=== PATIENT | female | born 1975 | race Caucasian/White ===

== ENCOUNTER 2016-03-11 | Outpatient (CLI) | payer MEDICAID | END 2016-03-11 15:37 | disposition critical access hospital (66) | CPT/HCPCS: A0425; A0427 ==

== ENCOUNTER 2016-03-11 16:07 | Emergency (ER) | payer MEDICAID ==
[2016-03-11] MEDS ORDERED: SODIUM CHLORIDE 0.9% 1,000 ML IV ONE (16:16)
[2016-03-11] MEDS ORDERED: ONDANSETRON 4 MG/2 ML VIAL IVP STA (16:16)
[2016-03-11] MEDS ORDERED: ONDANSETRON 4 MG/2 ML VIAL ONE (16:17)
== END 2016-03-11 18:11 | disposition home or self-care (01) ==
DX: J11.1 Influenza due to unidentified influenza virus with other respiratory manifestations (principal); Z87.891 Personal history of nicotine dependence

== ENCOUNTER 2016-07-04 10:35 | Emergency (ER) | payer MEDICAID ==
[2016-07-04] MEDS ORDERED: CEPHALEXIN 250 MG CAPSULE PO STA (11:11)
[2016-07-04] MEDS ORDERED: HYDROcod/ACETAM 5/325 MG TABLET PO STA (11:11)
[2016-07-04] MEDS ORDERED: DEXAMETHASONE 10 MG/ML VIAL PO STA (11:11)
[2016-07-04] MEDS ORDERED: HYDROcod/ACETAM 5/325 MG TABLET ONE (11:23)
[2016-07-04] MEDS ORDERED: DEXAMETHASONE 10 MG/ML VIAL ONE (11:23)
[2016-07-04] MEDS ORDERED: CEPHALEXIN 250 MG CAPSULE PO ONE (11:23)
== END 2016-07-04 11:30 | disposition home or self-care (01) ==
DX: K04.7 Periapical abscess without sinus (principal); K08.89 Other specified disorders of teeth and supporting structures; Z87.442 Personal history of urinary calculi; Q63.1 Lobulated, fused and horseshoe kidney; Z87.891 Personal history of nicotine dependence
CPT/HCPCS: 99283; A9270

== ENCOUNTER 2016-09-24 06:56 | Emergency (ER) | payer MEDICAID ==
--- NOTE | 2016-09-24 08:25 | ED Physician Documentation ---
PD HPI TRUNK INJURY - Stated complaint Stated Complaint: RIB PX - Chief complaint Chief Complaint: General - History obtained from History obtained from: Patient - History of Present Illness Location: Left chest Type of injury: Fall Timing - onset: How many days ago (10) Timing - details: Still present Quality: Pain Worsened by: Moving, Palpating, Other (Respiratory inspiration or cough) Associated symtptoms: No: Weakness, Numbness Where injury occured: Other (Mother's home.) Similar symptoms before: Diagnosis (Past history of rib fractures caused by aggressive CPR.) - Additional information Additional information: The patient is a 41-year-old female who presents with left chest wall pain that started 10 days ago after she fell, impacting her left chest on shrubs. She presents now because the pain has persisted over the past week and a half. It is worse with deep inspiration or with cough. She denies fever, abdominal pain , nausea or vomiting. She reports history of previous rib fractures bilaterally caused by aggressive CPR years ago. In addition the patient was on an airplane flight 3 days ago. Her symptoms were present before the airplane flight. Review of Systems Constitutional: denies: Fever Nose: denies: Congestion Throat: denies: Sore throat Cardiac: reports: Chest pain / pressure. denies: Palpitations Respiratory: denies: Dyspnea, Cough GI: denies: Abdominal Pain, Nausea, Vomiting : denies: Dysuria Skin: denies: Rash Musculoskeletal: denies: Back pain Neurologic: denies: Focal weakness, Numbness, Headache PD PAST MEDICAL HISTORY - Past Medical History Past Medical History: Yes Cardiovascular: None Respiratory: None Neuro: None Endocrine/Autoimmune: None GI: None ENLISTED ADVISOR: None : Kidney stones HEENT: None Psych: None Musculoskeletal: Chronic back pain Derm: None - Past Surgical History Past Surgical History: Yes General: Cholecystectomy, Appendectomy, Other /ENLISTED ADVISOR: Tubal ligation HEENT: Tonsil/Adenoidectomy - Present Medications Home Medications: Ambulatory Orders Medication Instructions Recorded Confirmed Colestipol HCl 1 gm ORAL DAILY 01/10/14 09/24/16 HYDROcod/ACETAM 5/325 [Vicodin 1 - 2 ea PO Q6H PRN #20 tablet 09/24/16 5/325] - Allergies Allergies/Adverse Reactions: Allergies Allergy/AdvReac Type Severity Reaction Status Date / Time iodine Allergy Severe Respiratory Verified 09/24/16 07:18 shellfish derived Allergy Respiratory Verified 09/24/16 07:18 codeine AdvReac Nausea Verified 09/24/16 07:18 - Social History Does the pt smoke?: No Smoking Status: Former smoker Does the pt drink ETOH?: No Does the pt have substance abuse?: No - Immunizations Immunizations are current?: Yes - POLST Patient has POLST: No PD ED PE NORMAL - Vitals Vital signs reviewed: Yes (Normal) - General General: Alert and oriented X 3, Well developed/nourished - HEENT HEENT: Atraumatic, EOMI, Pharynx benign - Neck Neck: Supple, no meningeal sign, No bony TTP, No adenopathy, No JVD - Cardiac Cardiac: RRR, No murmur, Other (Left midaxillary chest wall tenderness, in the lower left chest. No bony step-off palpated. No ecchymosis or abrasions.) - Respiratory Respiratory: No respiratory distress, Clear bilaterally - Abdomen Abdomen: Soft, Non tender, No organomegaly - Back Back: No CVA TTP, No spinal TTP - Derm Derm: No rash - Extremities Extremities: No edema, No calf tenderness / cord - Neuro Neuro: Alert and oriented X 3, No motor deficit, No sensory deficit, Normal speech Results - Vitals Vitals: Vital Signs - 24 hr 09/24/16 07:15 Temperature 36.8 C Heart Rate 58 L Respiratory 16 Rate Blood Pressure 99/66 O2 Saturation 100 Oxygen O2 Source Room air - Rads (name of study) left ribs with PA chest Radiology: Prelim report reviewed, EMP read contemporaneously, See rad report ( No active cardiopulmonary disease. Fracture seen at the anterior left second through sixth ribs, some of these may be subacute. No pneumothorax.) PD MEDICAL DECISION MAKING - ED course Complexity details: reviewed old records, reviewed results, re-evaluated patient , considered differential, d/w patient, d/w family ED course: The patient's presentation is most consistent with contusion to the left chest wall, with associated rib pain. She has previous history of multiple rib fractures, which are seen on chest x-ray today, but no acute fractures are detected. There is no evidence of pneumothorax or pulmonary contusion. I discussed with the patient and her the results of the x-ray, symptomatic treatment and outpatient follow-up, as well as potentially worrisome signs or symptoms that should prompt reevaluation in the emergency department. Departure - Departure Disposition: 01 Home, Self Care Clinical Impression: Rib pain on left side Condition: Stable Instructions: ED Contusion Chest Wall Follow-Up: [facility] [Provider Group] Prescriptions: HYDROcod/ACETAM 5/325 [Vicodin 5/325] 1 - 2 ea PO Q6H PRN #20 tablet PRN Reason: Pain Comments: Continue using ibuprofen, up to 600 mg 3 times daily for its anti-inflammatory effect. You can use Vicodin as prescribed if needed for pain. Follow-up with your primary physician within 1-2 weeks. Call to schedule an appointment. Return to the emergency department if you develop increasing difficulty breathing, or otherwise worsening symptoms.
--- NOTE | 2016-09-24 09:27 | XRAY Preliminary Report ---
Exam: XR Ribs w/PA Chest LT IMPRESSION: 1. No active cardiopulmonary disease. 2. Fracture seen at the anterior left second through sixth ribs. Some of these may be subacute. 3. No pneumothorax. [facility] SITE ID: [id number]
--- NOTE | 2016-09-24 09:42 | XRAY Report ---
EXAM: LEFT RIB RADIOGRAPHY EXAM DATE: 09/24/2016 08:58 AM. CLINICAL HISTORY: Left chest wall injury. COMPARISON: None. TECHNIQUE: 1 view of the chest and 2 views of the ribs. FINDINGS: Bones: Irregularity and old fractures seen at the second, third, fourth, and sixth anterior left ribs . There is a cortical step-off at the fifth anterior left rib. Lungs: No focal opacities. No pneumothorax. No pleural effusions. Mediastinum: Heart and mediastinal contours are unremarkable. Other: None. IMPRESSION: 1. No active cardiopulmonary disease. 2. Fractures seen at the anterior left second through sixth ribs. Some of these may be subacute. 3. No pneumothorax. [facility] Referring Provider Line: [phone] SITE ID: [id number]
[2016-09-24 09:59] VITALS: BP 108/68
== END 2016-09-24 09:59 | disposition home or self-care (01) ==
LOC: ED 06:56
DX: R07.81 Pleurodynia (principal); Z91.81 History of falling; Z87.891 Personal history of nicotine dependence
CPT/HCPCS: 99283

== ENCOUNTER 2017-01-22 16:15 | Emergency (ER) | payer MEDICAID ==
--- NOTE | 2017-01-22 17:29 | ED Physician Documentation ---
PD HPI NVD - Stated complaint Stated Complaint: VOMITING - Chief complaint Chief Complaint: General - History obtained from History obtained from: Patient - History of Present Illness Timing - onset: Yesterday Timing - duration: Days (02/23) Timing - details: Abrupt onset, Still present Associated symptoms: Abdominal pain (mid abd cramping), Loss of appetite. No: Fever, Chest pain, Hematemesis, Near syncope / syncope, Weight loss Contributing factors: No: Sick contact, Bad food, Travel, Recent antibiotics Worsened by: Eating Similar symptoms before: Has not had sx before Recently seen: Not recently seen Review of Systems Constitutional: reports: Chills, Myalgias. denies: Fever Nose: denies: Rhinorrhea / runny nose, Congestion Throat: denies: Sore throat Cardiac: denies: Chest pain / pressure Respiratory: denies: Cough GI: reports: Abdominal Pain, Nausea, Vomiting, Diarrhea : denies: Dysuria, Frequency Neurologic: reports: Generalized weakness, Headache. 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 : Kidney stones HEENT: None Psych: None Musculoskeletal: Chronic back pain Derm: None - Past Surgical History Past Surgical History: Yes General: Cholecystectomy, Appendectomy, Other /STARCH MANGLE TENDER: Tubal ligation HEENT: Tonsil/Adenoidectomy - Present Medications Home Medications: Ambulatory Orders Medication Instructions Recorded Confirmed Colestipol HCl 1 gm ORAL DAILY 01/10/14 09/24/16 HYDROcod/ACETAM 5/325 [Vicodin 1 - 2 ea PO Q6H PRN #20 tablet 09/24/16 5/325] Ondansetron Odt [Zofran] 4 mg TL Q6H PRN #15 tablet 01/22/17 - Allergies Allergies/Adverse Reactions: Allergies Allergy/AdvReac Type Severity Reaction Status Date / Time iodine Allergy Severe Respiratory Verified 01/22/17 16:29 bee venom protein (honey bee) Allergy Anaphylaxis Verified 01/22/17 16:30 shellfish derived Allergy Respiratory Verified 01/22/17 16:29 codeine AdvReac Nausea Verified 01/22/17 16:29 - Social History Does the pt smoke?: No Smoking Status: Never smoker Does the pt drink ETOH?: No Does the pt have substance abuse?: No - Immunizations Immunizations are current?: Yes - POLST Patient has POLST: No PD ED PE NORMAL - Vitals Vital signs reviewed: Yes - General General: Alert and oriented X 3, Well developed/nourished - HEENT HEENT: Atraumatic, Ears normal. No: Moist mucous membranes - Neck Neck: Supple, no meningeal sign, No adenopathy - Cardiac Cardiac: RRR, No murmur - Respiratory Respiratory: Clear bilaterally - Abdomen Abdomen: Normal bowel sounds, Soft, Non distended, No organomegaly, Other ( minimal mid abd tenderness without guarding. ) - Female Female : Deferred - Rectal Rectal: Deferred - Back Back: No CVA TTP - Derm Derm: Normal color, Warm and dry - Extremities Extremities: No tenderness to palpate, Normal ROM s pain - Neuro Neuro: Alert and oriented X 3, No motor deficit, Normal speech Results - Vitals Vitals: Oxygen O2 Source Room air - Labs Labs: Laboratory Tests 01/22/17 01/22/17 01/22/17 17:26 17:26 17:45 WBC 5.9 RBC 4.35 Hgb 12.6 Hct 37.0 MCV 85.0 MCH 28.8 MCHC 33.9 RDW 12.8 Plt Count 300 MPV 6.8 L Neut # 2.6 Lymph # 2.7 [place] # 0.5 Eos # 0.1 Baso # 0.0 Absolute Nucleated RBC 0.00 Nucleated RBC % 0.1 Sodium 136 Potassium 3.5 Chloride 101 Carbon Dioxide 28 Anion Gap 7.0 BUN 15 Creatinine 0.6 Estimated GFR (MDRD) 111 Glucose 106 H Calcium 8.6 Total Bilirubin 0.6 AST 65 H ALT 175 H Alkaline Phosphatase 49 Total Protein 7.0 Albumin 4.1 Globulin 2.9 Albumin/Globulin Ratio 1.4 Lipase 23 Urine Color YELLOW Urine Clarity CLOUDY Urine pH 5.5 Ur Specific [place] >=1.030 H Urine Protein NEGATIVE Urine Glucose (UA) NEGATIVE Urine Ketones NEGATIVE Urine Occult Blood SMALL H Urine Nitrite NEGATIVE Urine Bilirubin NEGATIVE Urine Urobilinogen 0.2 (NORMAL) Ur Leukocyte Esterase NEGATIVE Urine RBC 0-5 Urine WBC 0-3 Ur Squamous Epith Cells FEW Squamous Urine Bacteria None Seen Ur Microscopic Review INDICATED Urine Culture Comments NOT INDICATED PD MEDICAL DECISION MAKING - ED course Complexity details: reviewed results, re-evaluated patient (feeling better with fluids and meds. ), considered differential, d/w patient Departure - Departure Disposition: 01 Home, Self Care Clinical Impression: Nausea & vomiting Qualifiers: Vomiting type: unspecified Vomiting Intractability: non-intractable Qualified Code(s): R11.2 - Nausea with vomiting, unspecified Condition: Stable Record reviewed to determine appropriate education?: Yes Instructions: ED Nausea Vomiting Follow-Up: Armida Simon MD [Primary Care Provider] - Prescriptions: Ondansetron Odt [Zofran] 4 mg TL Q6H PRN #15 tablet PRN Reason: Nausea / Vomiting Comments: Ondansetron if needed for nausea. Small frequent fluids. [place] food initially such as pasta and rice and progress as able. Off work for 1-2 days due to the acute illness. Recheck if not improved over the next couple of days. Forms: Activity restrictions Discharge Date/Time: 01/22/17 17:56
[2017-01-22 17:45] LABS: ALBUMIN/GLOBULIN RATIO 1.4 (1.0-2.2); BILIRUBIN,TOTAL 0.6 mg/dL (0.2-1.0); CALCIUM 8.6 mg/dL (8.5-10.3); CREATININE 0.6 mg/dL (0.4-1.0); POTASSIUM 3.5 mmol/L (3.5-5.0)
[2017-01-22] MEDS ORDERED: ONDANSETRON ODT 4 MG TABLET TL STA (17:46)
[2017-01-22 17:54] LABS: BILIRUBIN,URINE NEGATIVE (NEGATIVE); PH,URINE 5.5 PH (5.0-7.5)
[2017-01-22 17:54] LABS: BASOPHILS % (AUTO) 0.6 %; EOSINOPHILS # (AUTO) 0.1 10^3/uL (0.0-0.7); EOSINOPHILS % (AUTO) 1.3 %; HGB - HEMOGLOBIN 12.6 g/dL (12.0-16.0); LYMPHOCYTES # (AUTO) 2.7 10^3/uL (1.5-3.5); LYMPHOCYTES % (AUTO) 45.9 %; MEAN CORPUSCULAR HEMOGLOBIN 28.8 pg (27.0-31.0); MEAN CORPUSCULAR HGB CONC 33.9 g/dL (32.0-36.0); MEAN PLATELET VOLUME 6.8 fL (7.9-10.8); MONOCYTES # (AUTO) 0.5 10^3/uL (0.0-1.0); MONOCYTES % (AUTO) 7.9 %; NEUTROPHILS # (AUTO) 2.6 10^3/uL (1.5-6.6); NEUTROPHILS % (AUTO) 44.3 %; NUCLEATED RED BLOOD CELLS AUTO 0.1 /100WBC; RED BLOOD COUNT 4.35 10^6/uL (4.20-5.40); RED CELL DISTRIBUTION WIDTH 12.8 % (12.0-15.0); UNCORRECTED WHITE BLOOD COUNT 5.9 x10^3/uL; WHITE BLOOD COUNT 5.9 x10^3/uL (4.8-10.8)
[2017-01-22 17:55] LABS: UA w/ MICROSCOPIC CHARGE YES
[2017-01-22 17:56] VITALS: BP 116/68
[2017-01-22 18:44] LABS: UR CULTURE IF IND NOT INDICATED; WBC,URINE 0-3 /HPF (0-5)
== END 2017-01-22 17:56 | disposition home or self-care (01) ==
LOC: ED 16:15
DX: R11.2 Nausea with vomiting, unspecified (principal)
CPT/HCPCS: 36415; 80053; 81001; 81003; 83690; 85025; 87086; 99283

== ENCOUNTER 2017-03-02 11:41 | Emergency (ER) | payer MEDICAID ==
[2017-03-02] MEDS ORDERED: PROPARACAINE 0.5% OPHTH DROPS 15 ML EACHEYE STA (13:07)
[2017-03-02 13:17] VITALS: BP 124/96
--- NOTE | 2017-03-02 13:22 | ED Physician Documentation ---
PD HPI OPHTHO - Stated complaint Stated Complaint: R EYE F/O - Chief complaint Chief Complaint: Heent - History obtained from History obtained from: Patient, Family - History of Present Illness Timing - onset: How many days ago (2) Timing - duration: Days (2) Timing - details: Gradual onset Pain level max: 5 Pain level now: 2 Location: Right Quality / character: Aching Associated symptoms: Redness, Tearing, Discharge (states purulent discharge yesterday.) Contributing factors: Wears contacts (contact lens stuck to her eye.) Similar symptoms before: Has not had sx before Recently seen: Not recently seen Review of Systems Constitutional: denies: Fever, Chills : denies: Now EGA PD PAST MEDICAL HISTORY - Past Medical History Cardiovascular: None Respiratory: None Neuro: None Endocrine/Autoimmune: None GI: None 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 : Kidney stones HEENT: None Psych: None Musculoskeletal: Chronic back pain Derm: None - Past Surgical History Past Surgical History: Yes General: Cholecystectomy, Appendectomy, Other /MEDIA SENIOR RECRUITER: Tubal ligation HEENT: Tonsil/Adenoidectomy - Present Medications Home Medications: Ambulatory Orders Medication Instructions Recorded Confirmed Colestipol HCl 1 gm ORAL DAILY 01/10/14 03/02/17 Ofloxacin 0.3% Ophth Drops 2 drops OPTH Q4H 10 Days #1 btl 03/02/17 [Ocuflox 0.3% Ophth Drops] - Allergies Allergies/Adverse Reactions: Allergies Allergy/AdvReac Type Severity Reaction Status Date / Time iodine Allergy Severe Respiratory Verified 03/02/17 11:49 bee venom protein (honey bee) Allergy Anaphylaxis Verified 03/02/17 11:49 shellfish derived Allergy Respiratory Verified 03/02/17 11:49 codeine AdvReac Nausea Verified 03/02/17 11:49 - Social History Does the pt smoke?: No Smoking Status: Never smoker Does the pt drink ETOH?: No Does the pt have substance abuse?: No - Immunizations Immunizations are current?: Yes - POLST Patient has POLST: No PD ED PE NORMAL - Vitals Vital signs reviewed: Yes - General General: Alert and oriented X 3, No acute distress - HEENT HEENT: Moist mucous membranes - Neck Neck: Supple, no meningeal sign - Derm Derm: Warm and dry - Neuro Neuro: Alert and oriented X 3 PD ED PE EXPANDED - HEENT HEENT Visual: 1 - abrasion (small corneal abrasion, + fluoroscein uptake. otherwsie normal exam. no tearing. no drainage. no FB. eyelids everted) Results - Vitals Vitals: Vital Signs - 24 hr 03/02/17 03/02/17 11:46 13:16 Temperature 37.2 C 36.6 C Heart Rate 100 77 Respiratory 17 18 Rate Blood Pressure 132/56 H 124/96 H O2 Saturation 99 99 Oxygen O2 Source Room air PD MEDICAL DECISION MAKING - ED course Complexity details: considered differential, d/w patient ED course: Patient with a right eye corneal abrasion. Will place on ofloxacin as this was a contact lens related injury. We will have her follow-up with her eye doctor for further care. She is not to use contacts until released by her doctor. Patient counseled regarding signs and symptoms for which I believe and urgent re -evaluation would be necessary. Patient with good understanding of and agreement to plan and is comfortable going home at this time This document was made in part using voice recognition software. While efforts are made to proofread this document, sound alike and grammatical errors may occur. No visible foreign body on exam Departure - Departure Disposition: 01 Home, Self Care Clinical Impression: Corneal abrasion due to contact lens Qualifiers: Laterality: right Qualified Code(s): H18.821 - Corneal disorder due to contact lens, right eye Condition: Good Instructions: ED Eye Injury Corneal Abrasion Follow-Up: Armida Simon MD [Primary Care Provider] - Within 1 week Prescriptions: Ofloxacin 0.3% Ophth Drops [Ocuflox 0.3% Ophth Drops] 2 drops OPTH Q4H 10 Days # 1 btl Comments: do not wear your contacts until cleared by your eye doctor. Return if you worsen.
== END 2017-03-02 13:40 | disposition home or self-care (01) ==
LOC: ED 11:41
DX: H18.821 Corneal disorder due to contact lens, right eye (principal)
CPT/HCPCS: 99283; J3490

== ENCOUNTER 2017-03-11 07:54 | Outpatient (CLI) | payer MEDICAID | END 2017-03-11 07:55 | disposition critical access hospital (66) | LOC: EMS 07:54 | PROVIDERS: ATTEND Surgery | DX: M54.9 Dorsalgia, unspecified (principal); R11.10 Vomiting, unspecified; R42 Dizziness and giddiness | CPT/HCPCS: A0425; A0429 ==

== ENCOUNTER 2017-03-11 08:16 | Emergency (ER) | payer MEDICAID ==
[2017-03-11] MEDS ORDERED: KETOROLAC 60 MG/2 ML VIAL IVP STA (08:38)
[2017-03-11] MEDS ORDERED: SODIUM CHLORIDE 0.9% 1,000 ML IV ONE (08:38)
--- NOTE | 2017-03-11 08:45 | ED Physician Documentation ---
PD HPI ABD PAIN - Stated complaint Stated Complaint: KIDNEY PX - Chief complaint Chief Complaint: Abd Pain - History obtained from History obtained from: Patient, Family - History of Present Illness Timing - onset: Enter time (399), Today Timing - duration: Hours Timing - details: Abrupt onset, Still present Quality: Sharp, Pain Location: LUQ Radiation: Left flank Improved by: Other (nothing) Worsened by: Other (nothing) Associated symptoms: Nausea, Vomiting Similar symptoms before: Diagnosis (renal colic) Recently seen: Not recently seen - Additional information Additional information: 41-year-old female with a history of multiple prior kidney stones Review of Systems Constitutional: denies: Fever, Chills, Myalgias Eyes: denies: Decreased vision Ears: denies: Ear pain Nose: denies: Congestion Throat: denies: Sore throat Cardiac: denies: Chest pain / pressure Respiratory: denies: Dyspnea, Cough GI: reports: Abdominal Pain, Nausea. denies: Constipation, Diarrhea : denies: Dysuria, Frequency Skin: denies: Rash Musculoskeletal: reports: Back pain. denies: Neck pain PD PAST MEDICAL HISTORY - Past Medical History Past Medical History: Yes Cardiovascular: None Respiratory: None Neuro: None Endocrine/Autoimmune: None GI: None MANAGER QUALITY: None : Kidney stones HEENT: None Psych: None Musculoskeletal: Chronic back pain Derm: None - Past Surgical History Past Surgical History: Yes General: Cholecystectomy, Appendectomy, Other /MANAGER QUALITY: Tubal ligation HEENT: Tonsil/Adenoidectomy - Present Medications Home Medications: Ambulatory Orders Medication Instructions Recorded Confirmed Colestipol HCl 1 gm ORAL DAILY 01/10/14 03/11/17 Ofloxacin 0.3% Ophth Drops 2 drops OPTH Q4H 10 Days #1 btl 03/02/17 03/11/17 [Ocuflox 0.3% Ophth Drops] - Allergies Allergies/Adverse Reactions: Allergies Allergy/AdvReac Type Severity Reaction Status Date / Time iodine Allergy Severe Respiratory Verified 03/11/17 08:21 bee venom protein (honey bee) Allergy Anaphylaxis Verified 03/11/17 08:21 shellfish derived Allergy Respiratory Verified 03/11/17 08:21 codeine AdvReac Nausea Verified 03/11/17 08:21 - Social History Does the pt smoke?: No Smoking Status: Never smoker Does the pt drink ETOH?: No Does the pt have substance abuse?: No - Immunizations Immunizations are current?: Yes - POLST Patient has POLST: No PD ED PE NORMAL - Vitals Vital signs reviewed: Yes (normal ) - General General: Alert and oriented X 3, Well developed/nourished, Other (41 y/o female is moaning in pain ) - HEENT HEENT: Atraumatic, PERRL - Neck Neck: Supple, no meningeal sign - Cardiac Cardiac: RRR, No murmur - Respiratory Respiratory: No respiratory distress, Clear bilaterally - Abdomen Abdomen: Normal bowel sounds, Soft, Non tender, Non distended, No organomegaly - Back Back: No CVA TTP, No spinal TTP - Derm Derm: Normal color, Warm and dry, No rash - Extremities Extremities: No deformity, No edema - Neuro Neuro: No motor deficit, No sensory deficit Eye Opening: Spontaneous Motor: Obeys Commands Verbal: Oriented GCS Score: 15 - Psych Psych: Normal mood, Normal affect Results - Vitals Vitals: Vital Signs - 24 hr 03/11/17 03/11/17 08:19 10:23 Temperature 36.7 C Heart Rate 65 93 Respiratory 17 18 Rate Blood Pressure 124/80 115/73 O2 Saturation 100 99 Oxygen O2 Source Room air - Labs Labs: Laboratory Tests 03/11/17 10:34 Urine Color YELLOW Urine Clarity SL. CLOUDY Urine pH 6.0 Ur Specific [place] 1.020 Urine Protein NEGATIVE Urine Glucose (UA) NEGATIVE Urine Ketones TRACE Urine Occult Blood NEGATIVE Urine Nitrite NEGATIVE Urine Bilirubin NEGATIVE Urine Urobilinogen 0.2 (NORMAL) Ur Leukocyte Esterase NEGATIVE Urine RBC 0-5 Urine WBC 4-5 Ur Squamous Epith Cells RARE Squamous Urine Bacteria Few Urine Mucus Moderate Strands Ur Microscopic Review INDICATED Urine Culture Comments NOT INDICATED Urine HCG, Qual NEGATIVE Procedures - Bedside sono Bedside sono by EMP: With use of bedside ultrasound the left kidney is imaged and there is evidence of hydronephrosis. The kidney is sonographically nontender. PD MEDICAL DECISION MAKING - ED course Complexity details: reviewed old records, reviewed results, re-evaluated patient , considered differential, d/w patient, d/w family ED course: 41-year-old female with a history of flank pain previously has similar symptoms today. She has had a number of CAT scans previously none of which have demonstrated a stone. She does recall at one time previously passing a stone and capturing the stone. Here today she does have symptoms consistent with kidney stone and her description of the pain which is from the left flank radiating around to the front down into the suprapubic area without modifying factors. On bedside ultrasound exam on arrival the patient does have some mild hydronephrosis. She has had a number of CAT scans without ever having demonstrated stones. I have discouraged her from further scanning. She is treated in the emergency department with Toradol with some improvement and received a single dose of dialudid. She is improved at discharge. We will not provide further pain medications Departure - Departure Disposition: 01 Home, Self Care Clinical Impression: Flank pain, acute Condition: Stable Instructions: ED Flank Pain Uncertain Cause Follow-Up: Armida Simon MD [Primary Care Provider] -
[2017-03-11 10:45] LABS: BILIRUBIN,URINE NEGATIVE (NEGATIVE); GLUCOSE, URINE (UA) NEGATIVE (NEGATIVE); KETONES,URINE (UA) TRACE mg/dL (NEGATIVE); LEUKOCYTE ESTERASE, URINE NEGATIVE (NEGATIVE); NITRITE,URINE NEGATIVE (NEGATIVE); OCCULT BLOOD,URINE NEGATIVE (NEGATIVE); PROTEIN,URINE NEGATIVE (NEGATIVE); UROBILINOGEN,URINE 0.2 (NORMAL) E.U./dL (NORMAL)
[2017-03-11] MEDS ORDERED: ONDANSETRON 4 MG/2 ML VIAL IVP STA (10:45)
[2017-03-11] MEDS ORDERED: HYDROmorphone 1 MG/ML SYRINGE IVP STA (10:45)
[2017-03-11 10:57] LABS: CLARITY,URINE SL. CLOUDY (CLEAR); HCG UR QUAL NEGATIVE
[2017-03-11 11:05] LABS: BACTERIA,URINE Few /HPF (None Seen); RBC,URINE 0-5 /HPF (0-5); SQUAMOUS EPITHELIAL CELL,UR RARE Squamous (<= Few)
[2017-03-11 11:06] LABS: MUCUS,URINE Moderate Strands
[2017-03-11 11:51] VITALS: BP 118/74
== END 2017-03-11 11:47 | disposition home or self-care (01) ==
LOC: EDBD → EDUNIT# → ED 08:16
DX: R10.32 Left lower quadrant pain (principal); Z87.442 Personal history of urinary calculi
CPT/HCPCS: 51798; 81001; 81025; 96361; 96374; 96375; 99284; J1170; 81003; 87086

== ENCOUNTER 2017-05-19 16:17 | Emergency (ER) | payer MEDICAID ==
[2017-05-19 16:47] LABS: BASOPHILS % (AUTO) 0.4 %; EOSINOPHILS # (AUTO) 0.1 10^3/uL (0.0-0.7); EOSINOPHILS % (AUTO) 0.7 %; HGB - HEMOGLOBIN 12.8 g/dL (12.0-16.0); LYMPHOCYTES # (AUTO) 2.1 10^3/uL (1.5-3.5); LYMPHOCYTES % (AUTO) 24.7 %; MEAN CORPUSCULAR HEMOGLOBIN 28.2 pg (27.0-31.0); MEAN CORPUSCULAR HGB CONC 32.5 g/dL (32.0-36.0); MEAN CORPUSCULAR VOLUME 86.6 fL (81.0-99.0); MEAN PLATELET VOLUME 7.1 fL (7.9-10.8); MONOCYTES # (AUTO) 0.3 10^3/uL (0.0-1.0); MONOCYTES % (AUTO) 4.2 %; NEUTROPHILS # (AUTO) 5.8 10^3/uL (1.5-6.6); PLT - PLATELET COUNT 352 10^3/uL (130-450); RED BLOOD COUNT 4.54 10^6/uL (4.20-5.40); WHITE BLOOD COUNT 8.3 x10^3/uL (4.8-10.8)
[2017-05-19 16:52] LABS: ALBUMIN 4.6 g/dL (3.2-5.5); ALBUMIN/GLOBULIN RATIO 1.5 (1.0-2.2); BILIRUBIN,TOTAL 0.6 mg/dL (0.2-1.0); CALCIUM 9.2 mg/dL (8.5-10.3); CREATININE 0.7 mg/dL (0.4-1.0); TOTAL PROTEIN 7.6 g/dL (6.7-8.2)
--- NOTE | 2017-05-19 17:43 | ED Physician Documentation ---
PD HPI ABD PAIN - Stated complaint Stated Complaint: BACK/FLANK PX/NAUSEA - Chief complaint Chief Complaint: Abd Pain - History obtained from History obtained from: Patient - History of Present Illness Timing - onset: Today Timing - details: Abrupt onset Location: RLQ Radiation: Right flank Improved by: No: Laying still, Position Worsened by: No: Moving, Position, Palpation Associated symptoms: Nausea, Hematuria. No: Fever, Vomiting, Diarrhea, Dysuria , Vaginal bleeding, Vaginal dc Similar symptoms before: Diagnosis (kidney stones) Review of Systems Constitutional: denies: Fever, Chills GI: reports: Abdominal Pain, Nausea. denies: Vomiting, Diarrhea : reports: Hematuria. 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 : Kidney stones HEENT: None Psych: None Musculoskeletal: Chronic back pain Derm: None - Past Surgical History Past Surgical History: Yes General: Cholecystectomy, Appendectomy, Other /VISUAL MERCHANDISE MANAGER: Tubal ligation HEENT: Tonsil/Adenoidectomy - Present Medications Home Medications: Ambulatory Orders Medication Instructions Recorded Confirmed Colestipol HCl 1 gm ORAL DAILY 01/10/14 03/11/17 Ofloxacin 0.3% Ophth Drops 2 drops OPTH Q4H 10 Days #1 btl 03/02/17 03/11/17 [Ocuflox 0.3% Ophth Drops] Naproxen [Naprosyn] 500 mg PO BID #20 tablet 05/19/17 Ondansetron Odt [Zofran] 4 mg TL Q6H PRN #15 tablet 05/19/17 Oxycodone HCl/Acetaminophen 1 each PO Q6H PRN #20 tablet 05/19/17 [Percocet 5-325 mg Tablet] - Allergies Allergies/Adverse Reactions: Allergies Allergy/AdvReac Type Severity Reaction Status Date / Time iodine Allergy Severe Respiratory Verified 03/11/17 08:21 bee venom protein (honey bee) Allergy Anaphylaxis Verified 03/11/17 08:21 shellfish derived Allergy Respiratory Verified 03/11/17 08:21 codeine AdvReac Nausea Verified 03/11/17 08:21 - Social History Does the pt smoke?: No Smoking Status: Never smoker Does the pt drink ETOH?: No Does the pt have substance abuse?: No - Immunizations Immunizations are current?: Yes - POLST Patient has POLST: No PD ED PE NORMAL - Vitals Vital signs reviewed: Yes - General General: Alert and oriented X 3, No acute distress, Well developed/nourished - HEENT HEENT: Moist mucous membranes, Pharynx benign - Neck Neck: Supple, no meningeal sign, No adenopathy - Cardiac Cardiac: RRR, No murmur - Respiratory Respiratory: Clear bilaterally - Abdomen Abdomen: Normal bowel sounds, Soft, Non distended, No organomegaly, Other ( tender RLQ without guarding) - Female Female : Deferred - Rectal Rectal: Deferred - Back Back: No spinal TTP, Other (rigth CVA tender to percussion) - Derm Derm: Normal color, Warm and dry - Extremities Extremities: No tenderness to palpate, Normal ROM s pain, No edema, No calf tenderness / cord - Neuro Neuro: Alert and oriented X 3, No motor deficit, Normal speech Results - Vitals Vitals: Oxygen O2 Source Room air - Labs Labs: Laboratory Tests 05/19/17 05/19/17 05/19/17 16:25 16:33 16:33 WBC 8.3 RBC 4.54 Hgb 12.8 Hct 39.3 MCV 86.6 MCH 28.2 MCHC 32.5 RDW 13.0 Plt Count 352 MPV 7.1 L Neut # 5.8 Lymph # 2.1 [place] # 0.3 Eos # 0.1 Baso # 0.0 Absolute Nucleated RBC 0.01 Nucleated RBC % 0.1 Sodium 138 Potassium 3.3 L Chloride 103 Carbon Dioxide 29 Anion Gap 6.0 BUN 12 Creatinine 0.7 Estimated GFR (MDRD) 93 Glucose 95 Calcium 9.2 Total Bilirubin 0.6 AST 15 ALT 17 Alkaline Phosphatase 40 L Total Protein 7.6 Albumin 4.6 Globulin 3.0 Albumin/Globulin Ratio 1.5 Lipase 22 Urine Color YELLOW Urine Clarity CLEAR Urine pH 6.0 Ur Specific [place] >=1.030 H Urine Protein NEGATIVE Urine Glucose (UA) NEGATIVE Urine Ketones TRACE Urine Occult Blood TRACE-INTA Urine Nitrite NEGATIVE Urine Bilirubin NEGATIVE Urine Urobilinogen 0.2 (NORMAL) Ur Leukocyte Esterase NEGATIVE Ur Microscopic Review NOT INDICATED Urine Culture Comments NOT INDICATED Urine HCG, Qual NEGATIVE PD MEDICAL DECISION MAKING - ED course Complexity details: considered differential (sounds stone like and has history of them; defer CT or studies and will treat empirically. This was done last visit as well, so be wary if too many repeated visits. ), d/w patient Departure - Departure Disposition: 01 Home, Self Care Clinical Impression: Left flank pain Condition: Stable Record reviewed to determine appropriate education?: Yes Instructions: ED Flank Pain Uncertain Cause, ED Stone Renal W Colic Follow-Up: Armida Simon MD [Primary Care Provider] - Prescriptions: Naproxen [Naprosyn] 500 mg PO BID #20 tablet Ondansetron Odt [Zofran] 4 mg TL Q6H PRN #15 tablet PRN Reason: Nausea / Vomiting Oxycodone HCl/Acetaminophen [Percocet 5-325 mg Tablet] 1 each PO Q6H PRN #20 tablet PRN Reason: Pain Comments: We will presume a kidney stone at this point. No signs of infection in the urine. Naproxen twice daily for the next several days to week. Ondansetron if needed for nausea. Add Percocet if needed for pain. Recheck if not improved over the next couple of days. Discharge Date/Time: 05/19/17 18:51
[2017-05-19] MEDS ORDERED: ONDANSETRON ODT 4 MG TABLET TL STA (18:09)
[2017-05-19] MEDS ORDERED: oxyCOD/ACETAMIN 5 MG/325 MG TABLET PO STA (18:09)
[2017-05-19] MEDS ORDERED: IBUPROFEN 600 MG TABLET PO STA (18:09)
[2017-05-19 18:11] VITALS: BP 139/94
[2017-05-19 18:23] LABS: BILIRUBIN,URINE NEGATIVE (NEGATIVE); GLUCOSE, URINE (UA) NEGATIVE (NEGATIVE); KETONES,URINE (UA) TRACE mg/dL (NEGATIVE); LEUKOCYTE ESTERASE, URINE NEGATIVE (NEGATIVE); NITRITE,URINE NEGATIVE (NEGATIVE); OCCULT BLOOD,URINE TRACE-INTA (NEGATIVE); PROTEIN,URINE NEGATIVE (NEGATIVE); UROBILINOGEN,URINE 0.2 (NORMAL) E.U./dL (NORMAL)
[2017-05-19 18:25] LABS: CLARITY,URINE CLEAR (CLEAR); HCG UR QUAL NEGATIVE
== END 2017-05-19 18:51 | disposition home or self-care (01) ==
LOC: ED 16:17
DX: R10.31 Right lower quadrant pain (principal); R11.0 Nausea; R31.9 Hematuria, unspecified
CPT/HCPCS: 36415; 80053; 81003; 81025; 83690; 85025; 99283; A9270; Q0162; 81001; 87086

== ENCOUNTER 2017-05-28 12:19 | Emergency (ER) | payer MEDICAID ==
[2017-05-28 12:37] VITALS: BP 116/71
[2017-05-28] MEDS ORDERED: BUFFERED LIDOCAINE 10 ML SYRINGE SUBQ STA (13:56)
[2017-05-28] MEDS ORDERED: HYDROcod/ACETAM 5/325 MG TABLET PO STA (13:56)
--- NOTE | 2017-05-28 13:58 | ED Physician Documentation ---
PD HPI SKIN - Stated complaint Stated Complaint: INGROWN HAIR/FEMALE - Chief complaint Chief Complaint: Wound - History obtained from History obtained from: Patient - History of Present Illness Timing - onset: Other (She shaved her groin with a razor about a week ago and has a what she thinks is an ingrown hair with swelling in the right side of the groin with Subjective fever since yesterday.) Review of Systems Constitutional: reports: Fever (subj), Fatigue. 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 : Kidney stones HEENT: None Psych: None Musculoskeletal: Chronic back pain Derm: None - Past Surgical History Past Surgical History: Yes General: Cholecystectomy, Appendectomy, Colonoscopy, EGD, Other /NATIONAL PARK TOUR GUIDE: Tubal ligation HEENT: Tonsil/Adenoidectomy - Present Medications Home Medications: Ambulatory Orders Medication Instructions Recorded Confirmed Colestipol HCl 1 gm ORAL DAILY 01/10/14 03/11/17 HYDROcod/ACETAM 5/325 [[place] 5/325] 1 - 2 ea PO Q6H PRN #15 tablet 05/28/17 Sulfamethoxazole/Trimethoprim 1 each PO BID 7 Days tablet 05/28/17 [Sulfamethoxazole-Tmp Ds Tablet] - Allergies Allergies/Adverse Reactions: Allergies Allergy/AdvReac Type Severity Reaction Status Date / Time iodine Allergy Severe Respiratory Verified 03/11/17 08:21 bee venom protein (honey bee) Allergy Anaphylaxis Verified 03/11/17 08:21 shellfish derived Allergy Respiratory Verified 03/11/17 08:21 codeine AdvReac Nausea Verified 03/11/17 08:21 - Social History Does the pt smoke?: No Smoking Status: Never smoker Does the pt drink ETOH?: No Does the pt have substance abuse?: No - Immunizations Immunizations are current?: Yes - POLST Patient has POLST: No PD ED PE NORMAL - Vitals Vital signs reviewed: Yes - General General: Alert and oriented X 3, No acute distress - Abdomen Abdomen: Soft, Non tender - Female Female : Custodial Manager present (Pauline Sanz RN), Other (Abcess inferior R labia 2cm) - Neuro Neuro: Alert and oriented X 3, Normal speech - Psych Psych: Normal mood, Normal affect Results - Vitals Vitals: Vital Signs - 24 hr 05/28/17 12:25 Temperature 37 C Heart Rate 75 Respiratory 16 Rate Blood Pressure 116/71 O2 Saturation 96 Oxygen O2 Source Room air Procedures - Abscess I&D (location) R labia Preparation: Lidocaine 1% (w bicarb) Incision: Incised with scalpel, Purulent drainage, Loculations broken, Culture obtained Other: Pt tolerated well, Dressing applied, Antibiotic prescribed Departure - Departure Disposition: 01 Home, Self Care Clinical Impression: Abscess Condition: Good Record reviewed to determine appropriate education?: Yes Instructions: ED Abscess IandD Prescriptions: HYDROcod/ACETAM 5/325 [[place] 5/325] 1 - 2 ea PO Q6H PRN #15 tablet PRN Reason: Pain Sulfamethoxazole/Trimethoprim [Sulfamethoxazole-Tmp Ds Tablet] 1 each PO BID 7 Days tablet Comments: We are performing a wound culture, the results should be done in 48-72 hours. If antibiotic change is necessary we will call you. Return if worse in the meantime, especially if you develop increased pain, fevers, cannot keep down the medication. Otherwise follow-up with your physician in approximately 2-3 days. [address] not drink or drive while taking narcotic pain medication. Note that many narcotic pain relievers also contain Tylenol/acetaminophen. Please ensure that your total dose of acetaminophen from all sources does not exceed 3 g (3000 mg) per day. You may get constipated while on this medication. Take a stool softener such as Colace twice a day while you are on it. Also add an rynj-ctw-ytaliga laxative such as senna or MiraLAX on any day that you do not have a bowel movement. If you received a narcotic pain medication or sedative while in the emergency department, do not drive for the next 24 hours.
== END 2017-05-28 15:04 | disposition home or self-care (01) ==
LOC: ED 12:19
DX: N76.4 Abscess of vulva (principal)
CPT/HCPCS: 56405; 87070; 87181; 87205; 99283; A9270

== ENCOUNTER 2017-09-30 11:36 | Emergency (ER) | payer MEDICAID ==
[2017-09-30 11:47] VITALS: BP 117/80
[2017-09-30 12:01] LABS: BILIRUBIN,URINE NEGATIVE (NEGATIVE); GLUCOSE, URINE (UA) NEGATIVE (NEGATIVE); KETONES,URINE (UA) NEGATIVE (NEGATIVE); OCCULT BLOOD,URINE NEGATIVE (NEGATIVE); UROBILINOGEN,URINE 1 (NORMAL) E.U./dL (NORMAL)
[2017-09-30 12:07] LABS: CLARITY,URINE CLEAR (CLEAR)
[2017-09-30] MEDS ORDERED: ONDANSETRON ODT 4 MG TABLET TL STA (12:21)
[2017-09-30] MEDS ORDERED: oxyCODONE 5 MG TABLET PO STA (12:21)
[2017-09-30] MEDS ORDERED: IBUPROFEN 400 MG TABLET PO STA (12:21)
[2017-09-30 12:22] LABS: BACTERIA,URINE Few /HPF (None Seen); RBC,URINE None Seen /HPF (0-5); SQUAMOUS EPITHELIAL CELL,UR MOD Squamous (<= Few); TRICHOMONAS,URINE PRESENT (None Seen)
[2017-09-30] MEDS ORDERED: cephALEXin 250 MG CAPSULE PO STA (12:22)
[2017-09-30 12:23] LABS: HCG UR QUAL NEGATIVE
--- NOTE | 2017-09-30 12:26 | ED Physician Documentation ---
History of Present Illness - Stated complaint Stated Complaint: BACK PX/BLOOD IN URINE - Chief complaint Chief Complaint: General - Additonal information Additional information: hx from pt 42 f to ED with dysuria hematuria and L flank pain thinks a kidney infection also thinks she may have passed a kidney stone had severe flank pain and trouble urinating this AM, then suddenly able to urinate urinated a large amt of blood, then blood and pain subsided some chills this AM s/p tubal ligation Review of Systems Constitutional: reports: Chills. 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 : Kidney stones HEENT: None Psych: None Musculoskeletal: Chronic back pain Derm: None - Past Surgical History Past Surgical History: Yes General: Cholecystectomy, Appendectomy, Colonoscopy, EGD, Other /CHANNELER: Tubal ligation HEENT: Tonsil/Adenoidectomy - Present Medications Home Medications: Ambulatory Orders Medication Instructions Recorded Confirmed Colestipol HCl 1 gm ORAL DAILY 01/10/14 03/11/17 Cephalexin [Keflex] 500 mg PO Q6H #39 capsule 09/30/17 Ibuprofen [Motrin] 400 mg PO Q6H PRN #30 tablet 09/30/17 Saccharomyces Boulardii [Florastor] 500 mg PO BID #40 capsule 09/30/17 - Allergies Allergies/Adverse Reactions: Allergies Allergy/AdvReac Type Severity Reaction Status Date / Time iodine Allergy Severe Respiratory Verified 09/30/17 11:46 bee venom protein (honey bee) Allergy Anaphylaxis Verified 09/30/17 11:46 shellfish derived Allergy Respiratory Verified 09/30/17 11:46 codeine AdvReac Nausea Verified 09/30/17 11:46 - Social History Does the pt smoke?: No Smoking Status: Never smoker Does the pt drink ETOH?: No Does the pt have substance abuse?: No - Immunizations Immunizations are current?: Yes - POLST Patient has POLST: No PD ED PE NORMAL - Vitals Vital signs reviewed: Yes - Cardiac Cardiac: RRR - Respiratory Respiratory: No respiratory distress - Abdomen Abdomen: Soft, Non tender - Back Back: No: No CVA TTP (L CVA TTP) Results - Vitals Vitals: Vital Signs - 24 hr 09/30/17 11:45 Temperature 36.6 C Heart Rate 81 Respiratory 16 Rate Blood Pressure 117/80 O2 Saturation 98 Oxygen O2 Source Room air - Labs Labs: Laboratory Tests 09/30/17 11:55 Urine Color ORANGE Urine Clarity CLEAR Urine pH 7.0 Ur Specific [place] 1.015 Urine Protein Urine Glucose (UA) NEGATIVE Urine Ketones NEGATIVE Urine Occult Blood NEGATIVE Urine Nitrite Urine Bilirubin NEGATIVE Urine Urobilinogen 1 (NORMAL) Ur Leukocyte Esterase Urine RBC None Seen Urine WBC 4-5 Ur Squamous Epith Cells MOD Squamous H Urine Bacteria Few Urine Trichomonas PRESENT H Ur Microscopic Review INDICATED Urine Culture Comments NOT INDICATED Urine HCG, Qual NEGATIVE - Rads (name of study) KUB Radiology: See rad report (no renal or ureteral stones, pelvic calcifications are unchanged from prior) PD MEDICAL DECISION MAKING - ED course ED course: no blood now dec flank pain pt thinks passed a stone but has infection as well she prefers no CT as she has had many before - so will get KUB xray - if neg for stone will dc tx for pyelo and tx for trich note UA was initially + for leuk est and nitrate so strated ab then lab changed the result to unable to determine 2/2 color intereference in any case her sx are c/w pyelo and have already started tx now will continue keflex X 10 days for pyelo and gave 2 g flagyl for the trich - Sepsis Event Vital Signs: Vital Signs - 24 hr 09/30/17 11:45 Temperature 36.6 C Heart Rate 81 Respiratory 16 Rate Blood Pressure 117/80 O2 Saturation 98 Oxygen O2 Source Room air Departure - Departure Disposition: 01 Home, Self Care Clinical Impression: Pyelonephritis, Trichomonal infection Condition: Good Instructions: ED Kidney Infec Female, ED Vaginitis Trichomonas Follow-Up: Armida Simon MD [Primary Care Provider] - Prescriptions: Cephalexin [Keflex] 500 mg PO Q6H #39 capsule Ibuprofen [Motrin] 400 mg PO Q6H PRN #30 tablet PRN Reason: Pain Saccharomyces Boulardii [Florastor] 500 mg PO BID #40 capsule Comments: The xray does not show a kidney stone So it is OK for you to go home on antibiotics for a kidney infection I have prescribed keflex If the cultures indicates a need to change antibiotics, the ER staff will call you. The urine also showed a trichomonas infection - you were treated for this in the ED - this can be a sexually transmitted disease so please advise any partners to get tested as well
[2017-09-30] MEDS ORDERED: metroNIDAZOLE 250 MG TABLET PO STA (12:36)
--- NOTE | 2017-09-30 13:37 | XRAY Report ---
Procedure Date: 09/30/2017 Accession Number: [id number] / [id number] Procedure: XR - Abdomen 1 View X-Ray CPT Code: 50586 FULL RESULT: EXAM: ABDOMEN RADIOGRAPHY EXAM DATE: 09/30/2017 12:37 PM. CLINICAL HISTORY: KUB ? L ureteral stone. COMPARISON: CT 12/11/2014. TECHNIQUE: 1 view. FINDINGS: Bowel Gas Pattern: Within normal limits. No dilated loops. Other: Surgical clips right upper quadrant the abdomen. Multiple calcifications again noted within the pelvis bilaterally. Lung bases appear clear. IMPRESSION: No definite renal or ureteral stones. Multiple bilateral calcifications are again noted within the pelvis, which do not appear significantly changed. RADIA
== END 2017-09-30 14:04 | disposition home or self-care (01) ==
LOC: ED 11:36
DX: N12 Tubulo-interstitial nephritis, not specified as acute or chronic (principal); A59.9 Trichomoniasis, unspecified
CPT/HCPCS: 74018; 81001; 81025; 87491; 87591; 99283; A9270; Q0162; 81003; 87086

== ENCOUNTER 2017-11-28 10:32 | Emergency (ER) | payer MEDICAID ==
--- NOTE | 2017-11-28 11:13 | XRAY Report ---
Reason: Trauma Procedure Date: 11/28/2017 Accession Number: [id number] / [id number] Procedure: XR - Knee 4 View RT CPT Code: FULL RESULT: EXAM: RIGHT KNEE RADIOGRAPHY EXAM DATE: 11/28/2017 11:00 AM. CLINICAL HISTORY: Trauma. Fall onto gravel landing on knee cap. Patient reports knee is stiff and sore, per technologist notes. COMPARISON: None. TECHNIQUE: 5 views. FINDINGS: Bones: No fractures or bone lesions. Joints: Joint spaces are preserved. No significant joint effusion. Soft Tissues: Unremarkable. IMPRESSION: 1. No acute osseous abnormality. RADIA
--- NOTE | 2017-11-28 11:35 | ED Physician Documentation ---
PD HPI LOWER EXT INJURY - Stated complaint Stated Complaint: GLF/KNEE PX - Chief complaint Chief Complaint: Ext Problem - History obtained from History obtained from: Patient - History of Present Illness PD HPI LOW EXT INJURY LOCATION: Right, Knee Type of injury: Fall Where injury occurred: Home Timing - onset: How many days ago (3) Timing - duration: Days (3) Timing - details: Abrupt onset, Still present Improved by: Rest, Ice, Immobilization Worsened by: Moving, Palpating Associated symptoms: Swelling, Discolored. No: Weakness, Numbness Contributing factors: No: Anticoagulated Similar symptoms before: Has not had sx before Recently seen: Not recently seen - Additional information Additional information: 50-year-old female fell onto her right knee on Wednesday night. She had significant amount of swelling associated with this to a contusion right below the patella. She is now developed some redness in the area and increased tenderness. She did work for 2 days on her feet 10 hours/day. She is feeling worse today. Review of Systems Constitutional: denies: Fever Eyes: denies: Decreased vision Ears: denies: Ear pain Nose: denies: Congestion Throat: denies: Sore throat Cardiac: denies: Chest pain / pressure Respiratory: denies: Dyspnea, Cough GI: denies: Nausea, Vomiting : denies: Dysuria, Frequency Skin: reports: Abrasion (s). denies: Rash Musculoskeletal: reports: Extremity pain, Pain with weight bearing. 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 : Kidney stones HEENT: None Psych: None Musculoskeletal: Chronic back pain Derm: None - Past Surgical History Past Surgical History: Yes General: Cholecystectomy, Appendectomy, Colonoscopy, EGD, Other /AIRCRAFT INSTRUMENT ENGINEER: Tubal ligation HEENT: Tonsil/Adenoidectomy - Present Medications Home Medications: Ambulatory Orders Medication Instructions Recorded Confirmed Colestipol HCl 1 gm ORAL DAILY 01/10/14 03/11/17 Sulfamethoxazole/Trimethoprim 1 each PO BID #14 tablet 11/28/17 [Sulfamethoxazole-Tmp Ds Tablet] hydrOXYzine PAMOATE [Vistaril] 25 mg PO HS 11/28/17 11/28/17 - Allergies Allergies/Adverse Reactions: Allergies Allergy/AdvReac Type Severity Reaction Status Date / Time iodine Allergy Severe Respiratory Verified 11/28/17 10:38 bee venom protein (honey bee) Allergy Anaphylaxis Verified 11/28/17 10:38 shellfish derived Allergy Respiratory Verified 11/28/17 10:38 codeine AdvReac Nausea Verified 11/28/17 10:38 - Social History Does the pt smoke?: No Smoking Status: Never smoker Does the pt drink ETOH?: No Does the pt have substance abuse?: No - Immunizations Immunizations are current?: Yes - POLST Patient has POLST: No PD ED PE NORMAL - Vitals Vital signs reviewed: Yes (hypertensive mild ) - General General: Alert and oriented X 3, No acute distress, Well developed/nourished - HEENT HEENT: Atraumatic, PERRL, EOMI - Respiratory Respiratory: No respiratory distress - Derm Derm: Normal color, Warm and dry, No rash - Extremities Extremities: No deformity, No edema, Other (There is an abrasion and hematoma to the pre-patellar area on the right knee and there is surrounding erythema and tendeness consistent with and early superficial infection. The knee itself is with stable ligaments and no effusion. ) - Neuro Neuro: Alert and oriented X 3, merchandise execution leader 2-12 intact, No motor deficit, No sensory deficit, Normal speech Eye Opening: Spontaneous Motor: Obeys Commands Verbal: Oriented GCS Score: 15 - Psych Psych: Normal mood, Normal affect Results - Vitals Vitals: Vital Signs - 24 hr 11/28/17 10:36 Temperature 36.8 C Heart Rate 85 Respiratory 16 Rate Blood Pressure 116/82 H O2 Saturation 98 Oxygen O2 Source Room air - Rads (name of study) Right knee Radiology: Prelim report reviewed (Impression: No acute osseous abnormality.), EMP read indepedently, See rad report PD MEDICAL DECISION MAKING - ED course Complexity details: reviewed old records, reviewed results, considered differential, d/w patient, d/w family ED course: 42-year-old female with a fall contusion and abrasion to the right knee with swelling and tenderness with superficial erythema surrounding it appears to have infection which is superficial. She does have a stable knee joint and is able to bear weight. - Sepsis Event Vital Signs: Vital Signs - 24 hr 11/28/17 10:36 Temperature 36.8 C Heart Rate 85 Respiratory 16 Rate Blood Pressure 116/82 H O2 Saturation 98 Oxygen O2 Source Room air Departure - Departure Disposition: Home, Self Care Clinical Impression: Infected abrasion of knee Qualifiers: Encounter type: initial encounter Laterality: right Qualified Code(s): S80.211A - Abrasion, right knee, initial encounter Condition: Stable Instructions: ED Abrasion, ED Staph Infec Abx Tx Only Follow-Up: Armida Simon MD [Primary Care Provider] - Prescriptions: Sulfamethoxazole/Trimethoprim [Sulfamethoxazole-Tmp Ds Tablet] 1 each PO BID #14 tablet Forms: Activity restrictions Discharge Date/Time: 11/28/17 12:18
[2017-11-28 11:54] VITALS: BP 115/82
== END 2017-11-28 12:18 | disposition home or self-care (01) ==
LOC: ED 10:32
DX: S80.01XA Contusion of right knee, initial encounter (principal); S80.211A Abrasion, right knee, initial encounter; L08.9 Local infection of the skin and subcutaneous tissue, unspecified; W19.XXXA Unspecified fall, initial encounter; Y92.009 Unspecified place in unspecified non-institutional (private) residence as the place of occurrence of the external cause
CPT/HCPCS: 99283

== ENCOUNTER 2017-11-28 13:44 | Outpatient (CLI) | payer OTHER, MEDICAID | END 2017-11-28 13:45 | disposition critical access hospital (66) | LOC: EMS 13:44 | PROVIDERS: ATTEND Surgery | DX: R07.9 Chest pain, unspecified (principal); V49.50XA Passenger injured in collision with unspecified motor vehicles in traffic accident, initial encounter; Y92.413 State road as the place of occurrence of the external cause | CPT/HCPCS: A0425; A0429 ==

== ENCOUNTER 2017-11-28 13:50 | Emergency (ER) | payer OTHER, MEDICAID ==
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
[2017-11-28] MEDS ORDERED: HYDROmorphone 1 MG/ML CARPUJECT IVP STA (14:44)
[2017-11-28] MEDS ORDERED: ONDANSETRON 4 MG/2 ML VIAL IVP STA (14:44)
[2017-11-28 15:56] VITALS: BP 123/82
[2017-11-28] MEDS ORDERED: KETOROLAC 60 MG/2 ML VIAL IM STA (15:57)
== END 2017-11-28 16:34 | disposition home or self-care (01) ==
LOC: EDUNIT# → ED 13:50
DX: S20.219A Contusion of unspecified front wall of thorax, initial encounter (principal); S42.017A Nondisplaced fracture of sternal end of right clavicle, initial encounter for closed fracture; S22.32XA Fracture of one rib, left side, initial encounter for closed fracture; V49.59XA Passenger injured in collision with other motor vehicles in traffic accident, initial encounter; W22.12XA Striking against or struck by front passenger side automobile airbag, initial encounter; Y92.410 Unspecified street and highway as the place of occurrence of the external cause
CPT/HCPCS: 71250; 96372; 96374; 99283; 99284; J1170

== ENCOUNTER 2017-12-23 17:22 | Emergency (ER) | payer MEDICAID ==
[2017-12-23 17:29] VITALS: BP 113/72
[2017-12-23] MEDS ORDERED: HYDROcod/ACETAM 5/325 MG TABLET PO STA (18:03)
[2017-12-23] MEDS ORDERED: PENICILLIN VK 250 MG TABLET PO STA (18:03)
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
== END 2017-12-23 18:11 | disposition home or self-care (01) ==
LOC: ED 17:22
DX: K02.9 Dental caries, unspecified (principal)
CPT/HCPCS: 99283; A9270

== ENCOUNTER 2018-01-20 16:38 | Emergency (ER) | payer MEDICAID ==
[2018-01-20 16:43] VITALS: BP 114/51
[2018-01-20] MEDS ORDERED: ONDANSETRON ODT 4 MG TABLET TL STA (17:04)
--- NOTE | 2018-01-20 17:06 | ED Physician Documentation ---
PD HPI NVD - Stated complaint Stated Complaint: VOMITING - Chief complaint Chief Complaint: Abd Pain - History obtained from History obtained from: Patient - History of Present Illness Timing - onset: Yesterday (42-year-old woman with history of appendectomy and cholecystectomy got sick last night with vomiting. She denies significant abdominal pain but it does feel "bubbly." Multiple other people at work have similar symptoms. No recent travel. She does not feel weak or dizzy at this juncture. She has had good luck with Zofran in the past.) Review of Systems Constitutional: denies: Chills, Fatigue Throat: denies: Sore throat Cardiac: denies: Chest pain / pressure, Palpitations Respiratory: denies: Dyspnea, Cough PD PAST MEDICAL HISTORY - Past Medical History Cardiovascular: None Respiratory: None Endocrine/Autoimmune: None GI: None HAND COKE DRAWER: None : Kidney stones HEENT: None Psych: None Musculoskeletal: Chronic back pain Derm: None - Past Surgical History Past Surgical History: Yes General: Cholecystectomy, Appendectomy, Colonoscopy, EGD, Other /HAND COKE DRAWER: Tubal ligation HEENT: Tonsil/Adenoidectomy - Present Medications Home Medications: Ambulatory Orders Medication Instructions Recorded Confirmed Colestipol HCl 1 gm ORAL DAILY 01/10/14 03/11/17 hydrOXYzine PAMOATE [Vistaril] 25 mg PO HS 11/28/17 11/28/17 Ondansetron Odt [Zofran] 4 mg TL Q6H PRN #10 tablet 01/20/18 - Allergies Allergies/Adverse Reactions: Allergies Allergy/AdvReac Type Severity Reaction Status Date / Time iodine Allergy Severe Respiratory Verified 12/23/17 17:29 bee venom protein (honey bee) Allergy Anaphylaxis Verified 12/23/17 17:29 shellfish derived Allergy Respiratory Verified 12/23/17 17:29 codeine AdvReac Nausea Verified 01/20/18 16:43 - Social History Does the pt smoke?: No Smoking Status: Never smoker Does the pt drink ETOH?: No Does the pt have substance abuse?: No - Immunizations Immunizations are current?: Yes - POLST Patient has POLST: No PD ED PE NORMAL - Vitals Vital signs reviewed: Yes - General General: Alert and oriented X 3, No acute distress - Cardiac Cardiac: RRR, No murmur - Respiratory Respiratory: No respiratory distress, Clear bilaterally - Abdomen Abdomen: Normal bowel sounds, Soft, Non tender - Neuro Neuro: Alert and oriented X 3, Normal speech - Psych Psych: Normal affect Results - Vitals Vitals: Vital Signs - 24 hr 01/20/18 16:40 Temperature 36.7 C Heart Rate 99 Respiratory 16 Rate Blood Pressure 114/51 L O2 Saturation 98 Oxygen O2 Source Room air PD MEDICAL DECISION MAKING - ED course ED course: 42-year-old with vomiting, exposed to something at work with similar issues. She has had a bubbly abdomen but no abdominal pain or tenderness. She is afebrile here. She declines IV fluids, just wants something for nausea and a work note. Departure - Departure Disposition: 01 Home, Self Care Clinical Impression: Vomiting Condition: Good Record reviewed to determine appropriate education?: Yes Instructions: ED Nausea Vomiting Prescriptions: Ondansetron Odt [Zofran] 4 mg TL Q6H PRN #10 tablet PRN Reason: Nausea / Vomiting Comments: Return tomorrow midday if not better, anytime if worse or new symptoms arise. Forms: Activity restrictions
== END 2018-01-20 17:12 | disposition home or self-care (01) ==
LOC: ED 16:38
DX: R11.10 Vomiting, unspecified (principal)
CPT/HCPCS: 99283; Q0162

== ENCOUNTER 2018-03-07 14:03 | Emergency (ER) | payer MEDICAID ==
--- NOTE | 2018-03-07 15:28 | XRAY Report ---
Reason: cough, congestion Procedure Date: 03/07/2018 Accession Number: [id number] / [id number] Procedure: XR - Chest 2 View X-Ray CPT Code: 34147 FULL RESULT: EXAM: CHEST RADIOGRAPHY EXAM DATE: 03/07/2018 03:08 PM. CLINICAL HISTORY: Cough, congestion. COMPARISON: [facility] W/PA CHEST LT 09/24/2016 8:43 AM CHEST W/O 11/28/2017 2:09 PM. TECHNIQUE: 2 views. FINDINGS: Lungs/Pleura: No focal opacities evident. No pleural effusion. No pneumothorax. Normal volumes. Mediastinum: Heart and mediastinal contours are unremarkable. Other: Multiple old healed left-sided rib fractures noted with more callus compared to the prior. 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 Surgical clips in the right upper quadrant again noted. IMPRESSION: No acute cardiopulmonary disease seen. See findings as above. RADIA
[2018-03-07 16:30] VITALS: BP 114/68
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
== END 2018-03-07 16:37 | disposition home or self-care (01) ==
LOC: ED 14:03
DX: J40 Bronchitis, not specified as acute or chronic (principal); M27.3 Alveolitis of jaws; S22.42XG Multiple fractures of ribs, left side, subsequent encounter for fracture with delayed healing; S42.021K Displaced fracture of shaft of right clavicle, subsequent encounter for fracture with nonunion; V49.9XXD Car occupant (driver) (passenger) injured in unspecified traffic accident, subsequent encounter
CPT/HCPCS: 71046; 99283

== ENCOUNTER 2018-05-04 07:27 | Outpatient (CLI) | payer MEDICAID | END 2018-05-04 07:28 | disposition critical access hospital (66) | LOC: EMS 07:27 | PROVIDERS: ATTEND Surgery | DX: N23 Unspecified renal colic (principal); R11.10 Vomiting, unspecified; R31.0 Gross hematuria; R63.0 Anorexia | CPT/HCPCS: A0425; A0429; A0999 ==

== ENCOUNTER 2018-05-04 07:43 | Emergency (ER) | payer MEDICAID ==
[2018-05-04] MEDS ORDERED: ONDANSETRON 4 MG/2 ML VIAL IVP STA (07:52)
[2018-05-04] MEDS ORDERED: SODIUM CHLORIDE 0.9% 1,000 ML IV STA (07:52)
[2018-05-04] MEDS ORDERED: KETOROLAC 15 MG/ML VIAL IVP STA (07:52)
[2018-05-04] MEDS ORDERED: MORPHINE 10 MG/ML VIAL IVP STA (07:52)
[2018-05-04 08:05] LABS: BASOPHILS % (AUTO) 0.5 %; EOSINOPHILS % (AUTO) 0.4 %; HGB - HEMOGLOBIN 13.1 g/dL (12.0-16.0); LYMPHOCYTES # (AUTO) 1.4 10^3/uL (1.5-3.5); LYMPHOCYTES % (AUTO) 17.9 %; MEAN CORPUSCULAR HEMOGLOBIN 27.5 pg (27.0-31.0); MEAN CORPUSCULAR HGB CONC 33.3 g/dL (32.0-36.0); MEAN CORPUSCULAR VOLUME 82.5 fL (81.0-99.0); MEAN PLATELET VOLUME 6.9 fL (7.9-10.8); MONOCYTES # (AUTO) 0.4 10^3/uL (0.0-1.0); MONOCYTES % (AUTO) 5.3 %; NEUTROPHILS # (AUTO) 5.9 10^3/uL (1.5-6.6); NEUTROPHILS % (AUTO) 75.9 %; PLT - PLATELET COUNT 351 10^3/uL (130-450); RED BLOOD COUNT 4.76 10^6/uL (4.20-5.40); RED CELL DISTRIBUTION WIDTH 12.6 % (12.0-15.0); WHITE BLOOD COUNT 7.8 x10^3/uL (4.8-10.8)
--- NOTE | 2018-05-04 08:09 | ED Physician Documentation ---
History of Present Illness - Stated complaint Stated Complaint: L KIDNEY PX - Chief complaint Chief Complaint: General - History obtained from History obtained from: Patient, EMS - History of Present Illness Timing: Last night Pain level max: 9 Pain level now: 9 - Additonal information Additional information: 42-year-old female presents to the emergency department with left flank pain since last night. Similar to kidney infections and kidney stones in the past. [place] feverish and chilled. Also noted blood in the urine. Has had similar symptoms previously several times. Has had nausea but no vomiting. Nothing makes it better or worse. Review of Systems Constitutional: reports: Fever (subjective), Chills Nose: denies: Rhinorrhea / runny nose, Congestion Cardiac: denies: Chest pain / pressure Respiratory: denies: Cough GI: denies: Nausea, Vomiting, Diarrhea, Hematemesis, Bloody / black stool : reports: Hematuria. denies: Dysuria, Frequency, Hesitancy Skin: denies: Rash Musculoskeletal: denies: Neck pain, Back pain Neurologic: denies: Headache PD PAST MEDICAL HISTORY - Past Medical History Cardiovascular: None Respiratory: None Endocrine/Autoimmune: None GI: None HUB BANDER: None : Kidney stones HEENT: None Psych: None Musculoskeletal: Chronic back pain Derm: None - Past Surgical History Past Surgical History: Yes General: Cholecystectomy, Appendectomy, Colonoscopy, EGD, Other /HUB BANDER: Tubal ligation HEENT: Tonsil/Adenoidectomy - Present Medications Home Medications: Ambulatory Orders Medication Instructions Recorded Confirmed Colestipol HCl 1 gm ORAL DAILY 01/10/14 03/11/17 hydrOXYzine PAMOATE [Vistaril] 25 mg PO HS 11/28/17 11/28/17 Ondansetron Odt [Zofran] 4 mg TL Q6H PRN #10 tablet 01/20/18 Albuterol Sulf [Ventolin Hfa 1 - 2 puffs INH Q4HR PRN #1 inhaler 03/07/18 Inhaler] Amoxicillin 500 mg PO TID #30 capsule 03/07/18 Hydrocodone/Acetaminophen 1 - 2 each PO Q6H PRN #14 tablet 03/07/18 [Hydrocodon-Acetaminophen 5-325] Cefdinir 300 mg PO BID #20 capsule 05/04/18 Ondansetron Odt [Zofran] 4 mg TL Q6H PRN #10 tablet 05/04/18 Oxycodone HCl/Acetaminophen 1 - 2 each PO Q6H PRN #14 tablet 05/04/18 [Percocet 5-325 mg Tablet] - Allergies Allergies/Adverse Reactions: Allergies Allergy/AdvReac Type Severity Reaction Status Date / Time iodine Allergy Severe Respiratory Verified 12/23/17 17:29 bee venom protein (honey bee) Allergy Anaphylaxis Verified 12/23/17 17:29 shellfish derived Allergy Respiratory Verified 12/23/17 17:29 codeine AdvReac Nausea Verified 01/20/18 16:43 - Social History Does the pt smoke?: No Smoking Status: Never smoker Does the pt drink ETOH?: No Does the pt have substance abuse?: No - Immunizations Immunizations are current?: Yes - POLST Patient has POLST: No PD ED PE NORMAL - Vitals Vital signs reviewed: Yes - General General: Alert and oriented X 3, No acute distress, Well developed/nourished - HEENT HEENT: PERRL, Moist mucous membranes - Neck Neck: Supple, no meningeal sign - Cardiac Cardiac: RRR, Strong equal pulses - Respiratory Respiratory: No respiratory distress, Clear bilaterally - Abdomen Abdomen: Soft, Non tender, Non distended - Back Back: Other (Left CVA tenderness) - Derm Derm: Warm and dry, No rash - Extremities Extremities: No edema - Neuro Neuro: Alert and oriented X 3 - Psych Psych: Normal mood, Normal affect Results - Vitals Vitals: Vital Signs - 24 hr 05/04/18 05/04/18 05/04/18 07:45 07:49 09:39 Temperature 36.7 C Heart Rate 85 89 93 Respiratory 16 16 Rate Blood Pressure 115/65 113/76 132/77 H O2 Saturation 100 100 100 05/04/18 10:05 Temperature Heart Rate 75 Respiratory 16 Rate Blood Pressure 111/74 O2 Saturation 99 Oxygen O2 Source Room air - Labs Labs: Laboratory Tests 05/04/18 05/04/18 05/04/18 07:52 07:52 07:55 WBC 7.8 RBC 4.76 Hgb 13.1 Hct 39.3 MCV 82.5 MCH 27.5 MCHC 33.3 RDW 12.6 Plt Count 351 MPV 6.9 L Neut # (Auto) 5.9 Lymph # (Auto) 1.4 L [place] # (Auto) 0.4 Eos # (Auto) 0.0 Baso # (Auto) 0.0 Absolute Nucleated RBC 0.00 Nucleated RBC % 0.0 Sodium 139 Potassium 3.3 L Chloride 104 Carbon Dioxide 24 Anion Gap 11.0 BUN 14 Creatinine 0.7 Estimated GFR (MDRD) 93 Glucose 108 H Calcium 8.8 Total Bilirubin 0.7 AST 20 ALT 58 Alkaline Phosphatase 61 Total Protein 7.5 Albumin 4.0 Globulin 3.5 Albumin/Globulin Ratio 1.1 Lipase 35 Urine Color YELLOW Urine Clarity CLOUDY Urine pH 6.0 Ur Specific [place] 1.025 Urine Protein NEGATIVE Urine Glucose (UA) NEGATIVE Urine Ketones 40 H Urine Occult Blood SMALL H Urine Nitrite POSITIVE H Urine Bilirubin NEGATIVE Urine Urobilinogen 0.2 (NORMAL) Ur Leukocyte Esterase TRACE H Urine RBC 6-10 H Urine WBC 11-25 H Ur Squamous Epith Cells FEW Squamous Urine Bacteria Many H Urine Mucus Moderate Strands Ur Microscopic Review INDICATED Urine Culture Comments INDICATED Urine HCG, Qual NEGATIVE - Rads (name of study) CT abd/pelvis non-contrast Radiology: Prelim report reviewed, EMP read contemporaneously, See rad report (. No urinary tract stones or obstruction. Probable fibroid uterus. . Stable operative changes of cholecystectomy and ventral hernia repair. Stable fat- containing ventral hernia superior to the mesh repair. ) PD MEDICAL DECISION MAKING - ED course Complexity details: reviewed results, re-evaluated patient, considered differential, d/w patient ED course: 42-year-old female with pyelonephritis. Given a dose of Rocephin IV and will place on antibiotics for home. She is well-appearing, nontoxic. Feels better. Pain well controlled. Tolerating p.o. without difficulty. No evidence of sepsis. Patient counseled regarding signs and symptoms for which I believe and urgent re-evaluation would be necessary. Patient with good understanding of and agreement to plan and is comfortable going home at this time This document was made in part using voice recognition software. While efforts are made to proofread this document, sound alike and grammatical errors may occur. Departure - Departure Disposition: 01 Home, Self Care Clinical Impression: Pyelonephritis Condition: Good Instructions: ED Kidney Infec Female Follow-Up: Armida Simon MD [Primary Care Provider] - Within 1 week Prescriptions: Cefdinir 300 mg PO BID #20 capsule Ondansetron Odt [Zofran] 4 mg TL Q6H PRN #10 tablet PRN Reason: Nausea / Vomiting Oxycodone HCl/Acetaminophen [Percocet 5-325 mg Tablet] 1 - 2 each PO Q6H PRN #14 tablet PRN Reason: pain Comments: Take all antibiotics until gone. Return if you worsen. There is no kidney stone on your CT scan today. This should improve with antibiotics. Forms: Activity restrictions Discharge Date/Time: 05/04/18 10:19
[2018-05-04 08:23] LABS: ALBUMIN/GLOBULIN RATIO 1.1 (1.0-2.2); BILIRUBIN,TOTAL 0.7 mg/dL (0.2-1.0); CALCIUM 8.8 mg/dL (8.5-10.3); CREATININE 0.7 mg/dL (0.4-1.0); TOTAL PROTEIN 7.5 g/dL (6.7-8.2)
[2018-05-04 08:24] LABS: BILIRUBIN,URINE NEGATIVE (NEGATIVE); GLUCOSE, URINE (UA) NEGATIVE (NEGATIVE); KETONES,URINE (UA) 40 mg/dL (NEGATIVE); LEUKOCYTE ESTERASE, URINE TRACE (NEGATIVE); NITRITE,URINE POSITIVE (NEGATIVE); OCCULT BLOOD,URINE SMALL (NEGATIVE); PROTEIN,URINE NEGATIVE (NEGATIVE); UROBILINOGEN,URINE 0.2 (NORMAL) E.U./dL (NORMAL)
[2018-05-04 08:29] LABS: CLARITY,URINE CLOUDY (CLEAR); HCG UR QUAL NEGATIVE
[2018-05-04 08:37] LABS: SQUAMOUS EPITHELIAL CELL,UR FEW Squamous (<= Few)
[2018-05-04 08:48] LABS: MUCUS,URINE Moderate Strands
[2018-05-04 08:58] LABS: BACTERIA,URINE Many /HPF (None Seen)
[2018-05-04] MEDS ORDERED: MORPHINE 2 MG/ML CARPUJECT IVP STA (09:25)
--- NOTE | 2018-05-04 09:29 | CT Report ---
Reason: L flank pain, h/o renal stones Procedure Date: 05/04/2018 Accession Number: [id number] / [id number] Procedure: CT - Abdomen/Pelvis WO CPT Code: FULL RESULT: EXAM: CT ABDOMEN AND PELVIS (CT KUB) EXAM DATE: 05/04/2018 08:30 AM. CLINICAL HISTORY: Left flank pain, history of renal stones. COMPARISONS: ABDOMEN/PELVIS W/O 12/11/2014 3:48 PM. TECHNIQUE: Routine axial helical CT imaging was performed through the abdomen and pelvis without IV contrast. Reconstructions: Coronal and sagittal. In accordance with CT protocol optimization, one or more of the following dose reduction techniques were utilized for this exam: automated exposure control, adjustment of mA and/or KV based on patient size, or use of iterative reconstructive technique. FINDINGS: Lung Bases: Unremarkable. Right Kidney/Ureter: No stones, hydronephrosis, or hydroureter. No perinephric fat stranding. Left Kidney/Ureter: No stones, hydronephrosis, or hydroureter. No perinephric fat stranding. Other Solid Organs: Noncontrast images of the solid organs are grossly unremarkable. Gallbladder/Bile Ducts: Surgically absent. Peritoneal Cavity: No free fluid, free air or macy adenopathy. Bowel is grossly unremarkable. Pelvic Organs: No bladder stones or wall thickening. Convex contour prominence to the left superior uterus most likely due to fibroid. Stable pattern of phleboliths in the pelvis. Vasculature: Unremarkable. Other: Stable appearance of prior mesh repair of low ventral hernia. There is a stable fat-containing ventral hernia superior to the mesh repair. IMPRESSION: 1. No urinary tract stones or obstruction. 2. Probable fibroid uterus. 3. Stable operative changes of cholecystectomy and ventral hernia repair. 4. Stable fat-containing ventral hernia superior to the mesh repair. RADIA
[2018-05-04] MEDS ORDERED: cefTRIAXone 1 GM VIAL IVP STA (09:37)
[2018-05-04 10:08] VITALS: BP 111/74
== END 2018-05-04 10:19 | disposition home or self-care (01) ==
LOC: EDUNIT# → ED 07:43
DX: N12 Tubulo-interstitial nephritis, not specified as acute or chronic (principal)
CPT/HCPCS: 36415; 74176; 80053; 81001; 81003; 81025; 83690; 85025; 87086; 87181; 96361; 96374; 96375; 96376; 99284

== ENCOUNTER 2018-06-13 17:08 | Emergency (ER) | payer MEDICAID ==
[2018-06-13 17:32] LABS: BASOPHILS % (AUTO) 0.6 %; EOSINOPHILS # (AUTO) 0.1 10^3/uL (0.0-0.7); HGB - HEMOGLOBIN 13.7 g/dL (12.0-16.0); LYMPHOCYTES # (AUTO) 1.5 10^3/uL (1.5-3.5); LYMPHOCYTES % (AUTO) 25.7 %; MEAN CORPUSCULAR HEMOGLOBIN 28.5 pg (27.0-31.0); MEAN CORPUSCULAR HGB CONC 34.4 g/dL (32.0-36.0); MEAN CORPUSCULAR VOLUME 82.8 fL (81.0-99.0); MEAN PLATELET VOLUME 6.5 fL (7.9-10.8); MONOCYTES # (AUTO) 0.4 10^3/uL (0.0-1.0); MONOCYTES % (AUTO) 6.6 %; NEUTROPHILS # (AUTO) 3.8 10^3/uL (1.5-6.6); NEUTROPHILS % (AUTO) 66.1 %; PLT - PLATELET COUNT 407 10^3/uL (130-450); RED BLOOD COUNT 4.79 10^6/uL (4.20-5.40); RED CELL DISTRIBUTION WIDTH 13.4 % (12.0-15.0); WHITE BLOOD COUNT 5.7 x10^3/uL (4.8-10.8)
[2018-06-13 17:49] LABS: ALBUMIN/GLOBULIN RATIO 1.2 (1.0-2.2); BILIRUBIN,TOTAL 0.6 mg/dL (0.2-1.0); CALCIUM 8.9 mg/dL (8.5-10.3); CREATININE 0.8 mg/dL (0.4-1.0); TOTAL PROTEIN 7.3 g/dL (6.7-8.2)
--- NOTE | 2018-06-13 17:56 | ED Physician Documentation ---
PD HPI NVD - Stated complaint Stated Complaint: VOMITING - Chief complaint Chief Complaint: Abd Pain - History obtained from History obtained from: Patient - History of Present Illness Timing - onset: Other (4 days N/V/D constant. Subjective fever, aches and chills. L mid abd pain, like knives. 2 sick contacts at home with similar sx, but not sick as long. 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 HEENT: None Psych: None Musculoskeletal: Chronic back pain Derm: None - Past Surgical History Past Surgical History: Yes General: Cholecystectomy, Appendectomy, Colonoscopy, EGD, Other /COMPLEX HUMAN RESOURCES MANAGER: Tubal ligation HEENT: Tonsil/Adenoidectomy - Present Medications Home Medications: Ambulatory Orders Medication Instructions Recorded Confirmed Colestipol HCl 1 gm ORAL DAILY 01/10/14 03/11/17 hydrOXYzine PAMOATE [Vistaril] 25 mg PO HS 11/28/17 11/28/17 Albuterol Sulf [Ventolin Hfa 1 - 2 puffs INH Q4HR PRN #1 inhaler 03/07/18 Inhaler] Dicyclomine [Bentyl] 20 mg PO QID PRN #15 capsule 06/13/18 Hydrocodone/Acetaminophen 1 - 2 each PO Q6H PRN #10 tablet 06/13/18 [Hydrocodon-Acetaminophen 5-325] Ondansetron Odt [Zofran] 4 mg TL Q6H PRN #10 tablet 06/13/18 - Allergies Allergies/Adverse Reactions: Allergies Allergy/AdvReac Type Severity Reaction Status Date / Time iodine Allergy Severe Respiratory Verified 06/13/18 17:14 bee venom protein (honey bee) Allergy Anaphylaxis Verified 06/13/18 17:14 shellfish derived Allergy Respiratory Verified 06/13/18 17:14 codeine AdvReac Nausea Verified 06/13/18 17:14 - Social History Does the pt smoke?: No Smoking Status: Never smoker Does the pt drink ETOH?: No Does the pt have substance abuse?: Yes Substance Use and Type: Marijuana - Immunizations Immunizations are current?: Yes - POLST Patient has POLST: No PD ED PE NORMAL - Vitals Vital signs reviewed: Yes - General General: Alert and oriented X 3, No acute distress - Cardiac Cardiac: RRR, No murmur - Respiratory Respiratory: No respiratory distress, Clear bilaterally - Abdomen Abdomen: Normal bowel sounds, Soft, Non tender - Back Back: No CVA TTP, No spinal TTP - Derm Derm: Normal color, Warm and dry - Extremities Extremities: No edema, No calf tenderness / cord - Neuro Neuro: Alert and oriented X 3, Normal speech - Psych Psych: Normal mood, Normal affect Results - Vitals Vitals: Vital Signs - 24 hr 06/13/18 06/13/18 17:12 19:14 Temperature 36.8 C 36.8 C Heart Rate 91 67 Respiratory 18 18 Rate Blood Pressure 103/74 105/57 L O2 Saturation 99 100 Oxygen O2 Source Room air - Labs Labs: Laboratory Tests 06/13/18 06/13/18 06/13/18 17:25 17:25 17:49 WBC 5.7 RBC 4.79 Hgb 13.7 Hct 39.7 MCV 82.8 MCH 28.5 MCHC 34.4 RDW 13.4 Plt Count 407 MPV 6.5 L Neut # (Auto) 3.8 Lymph # (Auto) 1.5 [place] # (Auto) 0.4 Eos # (Auto) 0.1 Baso # (Auto) 0.0 Absolute Nucleated RBC 0.00 Nucleated RBC % 0.0 Sodium 139 Potassium 3.0 L Chloride 104 Carbon Dioxide 29 Anion Gap 6.0 BUN 6 Creatinine 0.8 Estimated GFR (MDRD) 79 L Glucose 103 H Calcium 8.9 Total Bilirubin 0.6 AST 47 H ALT 181 H Alkaline Phosphatase 92 Total Protein 7.3 Albumin 4.0 Globulin 3.3 Albumin/Globulin Ratio 1.2 Lipase 40 Urine Color YELLOW Urine Clarity CLEAR Urine pH 6.0 Ur Specific [place] 1.010 Urine Protein NEGATIVE Urine Glucose (UA) NEGATIVE Urine Ketones NEGATIVE Urine Occult Blood TRACE-INTA Urine Nitrite NEGATIVE Urine Bilirubin NEGATIVE Urine Urobilinogen 0.2 (NORMAL) Ur Leukocyte Esterase NEGATIVE Ur Microscopic Review NOT INDICATED Urine Culture Comments NOT INDICATED Urine HCG, Qual 06/13/18 17:50 WBC RBC Hgb Hct MCV MCH MCHC RDW Plt Count MPV Neut # (Auto) Lymph # (Auto) [place] # (Auto) Eos # (Auto) Baso # (Auto) Absolute Nucleated RBC Nucleated RBC % Sodium Potassium Chloride Carbon Dioxide Anion Gap BUN Creatinine Estimated GFR (MDRD) Glucose Calcium Total Bilirubin AST ALT Alkaline Phosphatase Total Protein Albumin Globulin Albumin/Globulin Ratio Lipase Urine Color Urine Clarity Urine pH Ur Specific [place] 1.010 Urine Protein Urine Glucose (UA) Urine Ketones Urine Occult Blood Urine Nitrite Urine Bilirubin Urine Urobilinogen Ur Leukocyte Esterase Ur Microscopic Review Urine Culture Comments Urine HCG, Qual NEGATIVE PD MEDICAL DECISION MAKING - ED course ED course: 43-year-old woman presents with vomiting and diarrheal illness of 4 days duration and her family was sick with similar. Feeling better after meds. She had a specific concern about a recurrent umbilical hernia but there is no evidence of this on examination. Departure - Departure Disposition: 01 Home, Self Care Clinical Impression: Vomiting, Diarrhea, Abdominal pain Condition: Good Record reviewed to determine appropriate education?: Yes Instructions: Abdominal Pain Prescriptions: Dicyclomine [Bentyl] 20 mg PO QID PRN #15 capsule PRN Reason: Abdominal Pain Hydrocodone/Acetaminophen [Hydrocodon-Acetaminophen 5-325] 1 - 2 each PO Q6H PRN #10 tablet PRN Reason: pain Ondansetron Odt [Zofran] 4 mg TL Q6H PRN #10 tablet PRN Reason: Nausea / Vomiting Comments: Return in 12 hours if not better, anytime if worse. Follow-up with your primary care physician for consideration for surgical referral for potential recurrent hernia. Forms: Activity restrictions
[2018-06-13 17:57] LABS: GLUCOSE, URINE (UA) NEGATIVE (NEGATIVE); KETONES,URINE (UA) NEGATIVE (NEGATIVE); LEUKOCYTE ESTERASE, URINE NEGATIVE (NEGATIVE); NITRITE,URINE NEGATIVE (NEGATIVE); OCCULT BLOOD,URINE TRACE-INTA (NEGATIVE); PROTEIN,URINE NEGATIVE (NEGATIVE); UROBILINOGEN,URINE 0.2 (NORMAL) E.U./dL (NORMAL)
[2018-06-13] MEDS ORDERED: SODIUM CHLORIDE 0.9% 1,000 ML IV ONE (17:59)
[2018-06-13] MEDS ORDERED: KETOROLAC 30 MG/ML VIAL IVP STA (17:59)
[2018-06-13] MEDS ORDERED: ONDANSETRON 4 MG/2 ML VIAL IVP STA (17:59)
[2018-06-13 18:04] LABS: BILIRUBIN,URINE NEGATIVE (NEGATIVE); CLARITY,URINE CLEAR (CLEAR); ICTOTEST,URINE NEGATIVE
[2018-06-13] MEDS ORDERED: DICYCLOMINE 10 MG CAPSULE PO STA (18:06)
[2018-06-13] MEDS ORDERED: LOPERAMIDE 2 MG CAPSULE PO STA (18:06)
[2018-06-13] MEDS ORDERED: POTASSIUM BICARB 25 MEQ TABLET PO STA (18:07)
[2018-06-13 18:41] LABS: HCG UR QUAL NEGATIVE
[2018-06-13 19:37] VITALS: BP 113/65
== END 2018-06-13 19:42 | disposition home or self-care (01) ==
LOC: ED 17:08
DX: R10.9 Unspecified abdominal pain (principal); R11.2 Nausea with vomiting, unspecified; R19.7 Diarrhea, unspecified
CPT/HCPCS: 36415; 80053; 81003; 81025; 83690; 85025; 96361; 96374; 99283; A9270; 81001; 87086

== ENCOUNTER 2018-10-14 08:00 | Outpatient (CLI) | payer MEDICAID ==
[2018-10-14 18:33] LABS: BASOPHILS # (AUTO) 0.1 10^3/uL (0.0-0.1); BASOPHILS % (AUTO) 0.7 %; EOSINOPHILS # (AUTO) 0.1 10^3/uL (0.0-0.7); EOSINOPHILS % (AUTO) 1.4 %; HGB - HEMOGLOBIN 12.9 g/dL (12.0-16.0); LYMPHOCYTES # (AUTO) 2.3 10^3/uL (1.5-3.5); LYMPHOCYTES % (AUTO) 28.3 %; MEAN CORPUSCULAR HEMOGLOBIN 28.4 pg (27.0-31.0); MEAN CORPUSCULAR HGB CONC 32.1 g/dL (32.0-36.0); MEAN CORPUSCULAR VOLUME 88.5 fL (81.0-99.0); MEAN PLATELET VOLUME 9.1 fL (7.9-10.8); MONOCYTES # (AUTO) 0.4 10^3/uL (0.0-1.0); MONOCYTES % (AUTO) 4.7 %; NEUTROPHILS # (AUTO) 5.2 10^3/uL (1.5-6.6); NEUTROPHILS % (AUTO) 64.5 %; PLT - PLATELET COUNT 359 10^3/uL (130-450); RED BLOOD COUNT 4.54 10^6/uL (4.20-5.40); WHITE BLOOD COUNT 8.1 x10^3/uL (4.8-10.8)
[2018-10-14 19:27] LABS: ALBUMIN 4.2 g/dL (3.2-5.5); ALBUMIN/GLOBULIN RATIO 1.4 (1.0-2.2); ALKALINE PHOSPHATASE 40 IU/L (42-121); ALT ALANINE AMINOTRANSFERASE 23 IU/L (10-60); AST ASPARTATE AMINOTRANSFERASE 27 IU/L (10-42); BILIRUBIN,TOTAL 0.5 mg/dL (0.2-1.0); BUN - BLOOD UREA NITROGEN 12 mg/dL (6-20); CALCIUM 9.2 mg/dL (8.5-10.3); CARBON DIOXIDE - CO2 29 mmol/L (21-32); CHLORIDE 105 mmol/L (101-111); CHOL/HDL RATIO 3.5 (<4.4); CHOLESTEROL 219 mg/dL; CREATININE 0.7 mg/dL (0.4-1.0); GFR - MDRD 92 (>89); GLUCOSE 89 mg/dL (70-100); HDL CHOLESTEROL 63 mg/dL; LDL CHOLESTEROL,CALCULATED 139 mg/dL; LDL/HDL RATIO 2.2 (<4.4); SODIUM 142 mmol/L (135-145); TOTAL PROTEIN 7.3 g/dL (6.7-8.2); VLDL CHOLESTEROL 17 mg/dL
[2018-10-14 19:50] LABS: HB2 TOTAL 13.5 g/dL; HEMOGLOBIN A1C 0.44 g/dL; HEMOGLOBIN A1C % 5.1 % (4.6-6.2)
== END 2018-10-14 23:59 | disposition home or self-care (01) ==
LOC: LAB.N 08:00
PROVIDERS: ATTEND Family Medicine
DX: E78.5 Hyperlipidemia, unspecified (principal); Z13.1 Encounter for screening for diabetes mellitus
CPT/HCPCS: 36415; 80053; 80061; 83036; 83721; 84443; 85025

== ENCOUNTER 2018-11-01 10:18 | Emergency (ER) | payer MEDICAID ==
--- NOTE | 2018-11-01 12:13 | ED Physician Documentation ---
PD HPI HEENT - Stated complaint Stated Complaint: TOOTH PX - Chief complaint Chief Complaint: Heent - History obtained from History obtained from: Patient - History of Present Illness Timing - onset: How many days ago (2) Timing - duration: Days (2) Timing - details: Abrupt onset, Still present Location: Tooth Improves: Nothing Worsens: Everything Associated symptoms: Headache. No: Fever, Congestion, Rhinorrhea, Trismus, Unable to swallow, Swollen nodes, Facial swelling Similar symptoms before: Diagnosis (broken tooth) Recently seen: Not recently seen - Additional information Additional information: 43-year-old female has broken a left upper premolar and she has significant pain associated with this and heat and cold sensitivity. She is had a problem with this tooth previously is now broken off near the base. She has an appointment to see her dentist in mid November. Review of Systems Constitutional: denies: Fever Eyes: denies: Decreased vision Ears: denies: Ear pain Nose: denies: Rhinorrhea / runny nose, Congestion Throat: reports: Dental pain / toothache. 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 HEENT: None Psych: None Musculoskeletal: Chronic back pain Derm: None - Past Surgical History Past Surgical History: Yes General: Cholecystectomy, Appendectomy, Colonoscopy, EGD, Other /STREET CAR MECHANIC: Tubal ligation HEENT: Tonsil/Adenoidectomy - Present Medications Home Medications: Ambulatory Orders Medication Instructions Recorded Confirmed Colestipol HCl 1 gm ORAL DAILY 01/10/14 03/11/17 hydrOXYzine PAMOATE [Vistaril] 25 mg PO HS 11/28/17 11/28/17 Albuterol Sulf [Ventolin Hfa 1 - 2 puffs INH Q4HR PRN #1 inhaler 03/07/18 Inhaler] Dicyclomine [Bentyl] 20 mg PO QID PRN #15 capsule 06/13/18 Hydrocodone/Acetaminophen 1 - 2 each PO Q6H PRN #10 tablet 06/13/18 [Hydrocodon-Acetaminophen 5-325] Ondansetron Odt [Zofran] 4 mg TL Q6H PRN #10 tablet 06/13/18 Amoxicillin 875 mg PO BID #14 tablet 11/01/18 Hydrocodone/Acetaminophen 1 - 2 each PO Q6H PRN #14 tablet 11/01/18 [Hydrocodon-Acetaminophen 5-325] - Allergies Allergies/Adverse Reactions: Allergies Allergy/AdvReac Type Severity Reaction Status Date / Time iodine Allergy Severe Respiratory Verified 06/13/18 17:14 bee venom protein (honey bee) Allergy Anaphylaxis Verified 06/13/18 17:14 shellfish derived Allergy Respiratory Verified 06/13/18 17:14 codeine AdvReac Nausea Verified 06/13/18 17:14 - Social History Does the pt smoke?: No Smoking Status: Never smoker Does the pt drink ETOH?: No Does the pt have substance abuse?: Yes - Immunizations Immunizations are current?: Yes - POLST Patient has POLST: No PD ED PE NORMAL - Vitals Vital signs reviewed: Yes (normal ) - General General: Alert and oriented X 3, No acute distress, Well developed/nourished - HEENT HEENT: Atraumatic, PERRL, EOMI, Other (There is a tooth broken off at the base and this is tender/sensitive no drainage. ) - Neck Neck: Supple, no meningeal sign, No bony TTP - Respiratory Respiratory: No respiratory distress - Derm Derm: Normal color, Warm and dry, No rash - Extremities Extremities: No deformity, No edema - Neuro Neuro: Alert and oriented X 3, heavy line technician 2-12 intact, No motor deficit, No sensory deficit, Normal speech Eye Opening: Spontaneous Motor: Obeys Commands Verbal: Oriented GCS Score: 15 - Psych Psych: Normal mood, Normal affect PD ED PE EXPANDED - HEENT HEENT Visual: 1 - tenderness (broken at base) Results - Vitals Vitals: Vital Signs - 24 hr 11/01/18 10:23 Temperature 36.9 C Heart Rate 76 O2 Saturation 99 Oxygen O2 Source Room air PD MEDICAL DECISION MAKING - ED course Complexity details: reviewed old records, considered differential, d/w patient ED course: 43-year-old female with a broken right left premolar has sensitivity and this broken molar it is covered with It.43-year-old female with a broken right left premolar has sensitivity and this broken molar it is covered with It. Departure - Departure Disposition: 01 Home, Self Care Clinical Impression: Pain, dental Condition: Stable Instructions: ED Tooth Pain Follow-Up: LAURO LOUIE MD [Primary Care Provider] - Prescriptions: Amoxicillin 875 mg PO BID #14 tablet Hydrocodone/Acetaminophen [Hydrocodon-Acetaminophen 5-325] 1 - 2 each PO Q6H PRN #14 tablet PRN Reason: pain
[2018-11-01 12:22] VITALS: BP 126/72
== END 2018-11-01 12:21 | disposition home or self-care (01) ==
LOC: ED 10:18
DX: S02.5XXA Fracture of tooth (traumatic), initial encounter for closed fracture (principal); X58.XXXA Exposure to other specified factors, initial encounter; K08.89 Other specified disorders of teeth and supporting structures
CPT/HCPCS: 99282; 99284